=== PATIENT | female | born 1995 | race Caucasian/White ===

== ENCOUNTER 2020-06-17 08:53 | Day surgery (SDC) | payer BC, SELFPAY ==
[2020-06-15 08:04] LABS: HCG,QUAL RESULT NEGATIVE (NEGATIVE)
[~2020-06-17] VITALS: Ht 157.5 cm; Wt 60.8 kg
[2020-06-17 09:29] LABS: HCG,QUAL RESULT NEGATIVE (NEGATIVE)
[2020-06-17] MEDS ORDERED: WATER FOR IRRIGATION,STERILE 1,000 ML IRRIG.SOLN IR ONE (10:00)
[2020-06-17] MEDS ORDERED: DESFLURANE 15 MIN GAS INH ONE (10:00)
[2020-06-17] MEDS ORDERED: ROCURONIUM BROMIDE 10 MG/ML (ZEMURON) IV ONE (10:00)
[2020-06-17] MEDS ORDERED: LR 1,000 ML IV.SOLN IV ONE (10:00)
[2020-06-17] MEDS ORDERED: NS IRRIG SOLN 1000 ML IR ONE (10:00)
[2020-06-17] MEDS ORDERED: MUPIROCIN 2% TOPICAL OINTMENT 22 GM TP ONE (10:00)
[2020-06-17] MEDS ORDERED: SUGAMMADEX SODIUM 200 MG/2 ML VIAL IV ONE (10:00)
[2020-06-17] MEDS ORDERED: LIDOCAINE 2%, 20 ML MDV INJ ONE (10:00)
[2020-06-17] MEDS ORDERED: ONDANSETRON HCL 4 MG/2 ML VIAL IVP ONE (10:00)
[2020-06-17] MEDS ORDERED: MIDAZOLAM HCL 5 MG/5 ML VIAL IVP ONE (10:00)
[2020-06-17] MEDS ORDERED: PROPOFOL 200MG/ 20ML VIAL (DIPRIVAN) IV ONE (10:00)
[2020-06-17] MEDS ORDERED: KETOROLAC TROMETHAMINE 30 MG VIAL IVP ONE (10:00)
[2020-06-17] MEDS ORDERED: DEXAMETHASONE SOD PHOSPHATE 4 MG/ML VIAL IVP ONE (10:00)
[2020-06-17] MEDS ORDERED: fentaNYL CITRATE 250 MCG/5 ML AMP IV ONE (10:00)
[2020-06-17] MEDS ORDERED: METOCLOPRAMIDE HCL 10 MG/2 ML VIAL IVP PRN (11:00)
[2020-06-17] MEDS ORDERED: MEPERIDINE HCL/PF 25 MG/ML DISP.SYRIN IVP PRN (11:00)
[2020-06-17] MEDS ORDERED: ONDANSETRON HCL 4 MG/2 ML VIAL IVP PRN (11:00)
[2020-06-17] MEDS ORDERED: MIDAZOLAM HCL 2 MG/2 ML VIAL (VERSED) IVP PRN (11:00)
[2020-06-17] MEDS ORDERED: LR 1,000 ML IV SCH (11:00)
[2020-06-17] MEDS ORDERED: HYDROmorphone 1 MG INJ. 1 MG/ML CARTRIDGE IVP PRN ×2 (11:00)
[2020-06-17 13:46] VITALS: BP_SYST 108
== END 2020-06-17 14:15 | disposition home or self-care (01) ==
LOC: SDS 08:53 → SMU 08:53 → SDS 14:15
PROVIDERS: ATTEND Otolaryngology
DX: J34.89 Other specified disorders of nose and nasal sinuses (principal); D38.5 Neoplasm of uncertain behavior of other respiratory organs; J34.2 Deviated nasal septum; J31.0 Chronic rhinitis; R04.0 Epistaxis; K21.9 Gastro-esophageal reflux disease without esophagitis; Z79.899 Other long term (current) drug therapy
CPT/HCPCS: 30140; 30520; 31255; 36415; 84703 ×2; 87426; 88305; 88311; C9399; J1100; J1885; J2001; J2250; J2405; J2704; J3010; J7120